=== PATIENT | female | born 1985 | race Caucasian/White ===

== ENCOUNTER 2022-06-18 08:00 | Outpatient (CLI) | payer OTHER, SELFPAY ==
--- NOTE | 2022-06-18 08:15 | CRLHL7_ITS ---
For Patients: As a result of the Cures Act, medical imaging exams and procedure reports are released immediately into your electronic medical record. You may view this report before your referring provider. If you have questions, please contact your health care provider. INDICATION: First trimester scan, establish dates. COMPARISON: None. TECHNIQUE: Real-time montgomery-scale imaging of the pelvis was performed. FINDINGS: Sonographic imaging demonstrates a single living intrauterine gestation. The embryo demonstrates a regular cardiac rate measuring 157 beats per minute. The embryo`s crown-rump length measurement of 1.5 cm corresponds to a gestational age of 8 weeks 0 days with a sonographic due date of 01/28/2023. There is an enlarged yolk sac measuring 7.9 millimeters. There are no gross abnormalities noted within the embryo at this early state of development. A small area fluid is located within the uterus adjacent to the endometrium measuring 4 x 6 x 3 millimeters. There is a 2 x 7 x 3 millimeter perigestational hemorrhage. The amount of fluid within the sac appears appropriate for gestational age. The cervix is closed. The myometrium appears normal. The ovaries are of normal size. Corpus luteal cyst left ovary. There are no suspicious fluid collections noted in the cul-de-sac. IMPRESSION: Single living intrauterine with sonographic gestational age 8 weeks 0 days and sonographic due date 01/28/23. Abnormally enlarged yolk sac measuring 7.9 millimeters. Increased risk of spontaneous may be present. Close follow-up suggested. Dictated by Navneet Posey MD @ 06/18/2022 10:11:17 AM (Electronically Signed)
== END 2022-06-18 08:01 | disposition home or self-care (01) ==
LOC: US 08:03
PROVIDERS: Visit Provider Registered Nurse
DX: Z34.81 Encounter for supervision of other normal pregnancy, first trimester (principal); Z3A.08 8 weeks gestation of pregnancy
CPT/HCPCS: 76817; 86592; 86703; 86762; 86803; 86850; 86900; 86901; 87086; 87340; 87491; 87591

== ENCOUNTER 2022-06-25 16:51 | Outpatient (CLI) | payer OTHER, SELFPAY ==
--- NOTE | 2022-06-25 17:00 | CRLHL7_ITS ---
For Patients: As a result of the Century Cures Act, medical imaging exams and procedure reports are released immediately into your electronic medical record. You may view this report before your referring provider. If you have questions, please contact your health care provider. INDICATION: Follow-up viability COMPARISON: 06/18/2022 TECHNIQUE: Real-time montgomery-scale imaging of the pelvis was performed. FINDINGS: pole has decreased in size now measuring 1.4 cm compared to 1.5 cm on the prior study. Enlarged and slightly irregular yolk sac is present which has increased in size now measuring 8.9 millimeters compared to 7.9 millimeters. No subchorionic hemorrhage. No heart tones. IMPRESSION: Intrauterine demise. Dictated by Navneet Posey MD @ 06/26/2022 9:47:57 AM (Electronically Signed)
== END 2022-06-25 16:52 | disposition home or self-care (01) ==
LOC: US 16:52
PROVIDERS: Visit Provider Registered Nurse
DX: O41.8X90 Other specified disorders of amniotic fluid and membranes, unspecified trimester, not applicable or unspecified (principal); O02.1 Missed abortion
CPT/HCPCS: 76817

== ENCOUNTER 2022-06-30 10:31 | Day surgery (SDC) | payer OTHER, SELFPAY ==
[2022-06-30 10:50] VITALS: BP 133/88; PULSE 74; RESP 16; TEMP 36.8; O2SAT 97
[2022-06-30 10:51] VITALS: BMI 30.4
[2022-06-30] MEDS: LACTATED RINGERS 1000 ML 1,000 ML 100 ML IV (11:00)
[2022-06-30] MEDS: SODIUM CHLORIDE 0.9 % (FLUSH) 10 ML SYRINGE IVF (11:06)
[2022-06-30] MEDS: DOXYCYCLINE HYCLATE 200 MG in 0.9 % SODIUM CHLORIDE Mini-bag 100 ML 100 MG IVPB (11:50)
[2022-06-30 12:12] VITALS: BP 114/65; PULSE 68; RESP 16; TEMP 36.2; O2SAT 95
[2022-06-30 12:15] VITALS: BP 100/62; PULSE 78; RESP 16; O2SAT 96
--- NOTE | 2022-06-30 12:17 | W.ANESCHARGE ---
Anesthesia Charges Start Date/Time Anesthesia Start Date: 06/30/22 Anesthesia Start Time: 11:37 Stop Date/Time Anesthesia Stop Date: 06/30/22 Anesthesia Stop Time: 12:15 Summary Emergency: No
--- NOTE | 2022-06-30 12:19 | W.ANESCHARGE ---
Anesthesia Charges Start Date/Time Anesthesia Start Date: 06/30/22 Anesthesia Start Time: 11:37 Stop Date/Time Anesthesia Stop Date: 06/30/22 Anesthesia Stop Time: 12:15 Summary Emergency: No
[2022-06-30 12:30] VITALS: BP 110/77; PULSE 58; RESP 16; O2SAT 100
--- NOTE | 2022-06-30 12:47 | PM.GYNPRPL ---
Procedure Pre-op/Post-op diagnoses: Pre-Op/Post-Op Diagnoses Operation Date: 06/30/22 11:55 <No data on this case meets the specified criteria> Procedure: Procedures Operation Date: 06/30/22 11:55 Actual Procedure Side Surgeon p Suction D&C Courtney Cast MD DILATION AND CURRETAGE PREOPERATIVE DIAGNOSIS: 1. Spontaneous missed POSTOPERATIVE DIAGNOSIS: Same PROCEDURE: 1. EUA 2. Suction dilation and curettage SURGEON: Courtney Cast MD DIRECTOR SUPPLY: Flavia StricklandDavison ANESTHESIA: MAC PRE-OPERATIVE ANTIBIOTIC: DOXYCYCLINE 200 MG IV FINDINGS: 1. A 7 week size mobile anteverted uterus, no adnexal masses on EUA 2. Normal external genitalia, normal appearing cervix that is dilated to 1 cm ESTIMATED BLOOD LOSS: 200cc URINE OUTPUT: 100cc COMPLICATIONS: none SPECIMEN: 1. Products of conception INDICATIONS: [age] yo G 2 P 1011, with diagnosis of missed at 8 weeks. DESCRIPTION OF PROCEDURE: The patient was taken to the operating room where MAC was administered. She was prepared and draped in normal sterile fashion in the dorsal lithotomy position in yellow fin/candy cane stirrups, taking care to avoid lower extremity hyperextension, hyperflexion or compression. A surgical time-out was performed with the entire operative staff per protocol. Perioperative antibiotics were given and pneumoboots were placed and activated. EUA revealed the above findings. Bladder was drained. A speculum was placed in the patient's vagina and a single-tooth tenaculum was placed on the anterior lip of the cervix. The cervix was gently dilated to a 8 [place] diameter to accommodate the 8 suction curettage. The suction curettage was then inserted under direct visualization. The uterus was then gently suction curetted and rotated to clear the uterus of products of conception. This was performed until a gritty texture. Single pass with banjo curette performed and it was noted and the uterus was cleared of all remaining products of conception. There was minimal bleeding noted after the curettage was removed. The tenaculum was removed from the anterior lip of the cervix and excellent hemostasis was noted. All instruments were removed. Specimen was sent to pathology. The patient tolerated the procedure well. Sponge, lap and needle counts were correct x 2. The patient was taken to the recovery room in stable condition. Courtney Cast MD Attending Physician Department of Obstetrics and Gynecology [facility] Estimated blood loss (mL): 200 Anesthesia type: MAC Complications: none Specimen: uterine contents Disposition: PACU
--- NOTE | 2022-06-30 12:57 | PM.GYNDS1 ---
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 Indication for surgery: []. Intraoperative findings were notable for []. She had an uncomplicated surgery. Postoperative course has been uneventful. Vitals have been stable. She has remained afebrile. Today, on postoperative day [], she reports the pain is well controlled. She has been able to ambulate Without difficulty. She is tolerating regular diet. She is passing flatus. Britton catheter has been removed, and she is voiding without difficulty. Time Spent with Patient Time attestation: Total time spent providing and/or coordinating discharge services: Time spent: Less than 30 minutes MOTOR SETTER - Exam Physical Exam: Vital signs: Temp Pulse Resp BP Pulse Ox O2 Del Method 97.1 F L 58 L 16 110/77 100 06/30/22 12:12 06/30/22 12:30 06/30/22 12:30 06/30/22 12:30 06/30/22 12:30 06/30/22 12:30 MOTOR SETTER - DS: Data Procedures Procedures: Procedures Operation Date: 06/30/22 11:55 Actual Procedure Side Surgeon p Suction D&C Courtney Cast MD Complications: none Discharge Plan Discharge Disposition: Home, Self-Care Discharging Surgeon: Courtney Cast Follow-Up Appointment: As needed. Prescriptions: New ibuprofen 600 mg tablet 600 mg PO Q6H PRN (Reason: pain) Qty: 14 0RF Rx Instructions: Alternate with Tylenol acetaminophen [Tylenol Extra Strength] 500 mg tablet 500 mg PO Q6H PRN (Reason: pain) Qty: 14 0RF Rx Instructions: Alternate with Ibuprofen. Do not exceed 3 g in 24 hours. Continued docosahexaenoic acid 200 mg capsule 250 cap PO DAILY prenat.vits,meri,vfw-mpia-awycx Tablet 1 tab PO QDAY fenofibric acid (choline) 135 mg capsule,delayed release(DR/EC) 135 mg PO QDAY Activity Level: Other Activity Detail: Pelvic rest for 2 weeks Discharge Diet: Regular Patient Instructions: Deep Sedation (DC), Dilation and Curettage (DC) Additional Instructions: 1. Pelvic rest for 2 weeks 2. Continue vitamins 3. When to call your doctor: Fever (>100.4F or 38.0C) or chills Foul smelling vaginal discharge Severe nausea and vomiting Bright red vaginal bleeding (soaking >1 pad/hour) Severe pain not relieved with pain medication Or if you have any other problems or questions 4. Call 911 or go to the emergency room if you have: any shortness of breath, difficulty breathing, or chest pain Forms: Work/Release Restrictions Follow-up: Provider,Not a Local [Primary Care Provider] - Courtney Cast MD [Staff Physician] - Discharge Orders: Discharge Order (Routine); Ordered 06/30/22 Ordered By: Courtney Cast
== END 2022-06-30 13:15 | disposition home or self-care (01) ==
PROVIDERS: Visit Provider Obstetrics & Gynecology
PROC: (CPT 59820; principal; 2022-06-30 11:45)
DX: O02.1 Missed abortion (principal); Z3A.08 8 weeks gestation of pregnancy
CPT/HCPCS: 59820; 01965; 88305; J1100; J1885; J2250; J2405; J2704; J3010; J3490; J7120

== ENCOUNTER 2023-04-24 11:58 | Outpatient (CLI) | payer OTHER, SELFPAY ==
--- NOTE | 2023-04-24 12:15 | CRLHL7_ITS ---
For Patients: As a result of the Cures Act, medical imaging exams and procedure reports are released immediately into your electronic medical record. You may view this report before your referring provider. If you have questions, please contact your health care provider. INDICATION: First trimester scan, establish dates. COMPARISON: None. TECHNIQUE: Real-time montgomery-scale imaging of the pelvis was performed. FINDINGS: Sonographic imaging demonstrates a single living intrauterine gestation. The embryo demonstrates a regular cardiac rate measuring 180 beats per minute. The embryo`s crown-rump length measurement of 1.9 cm corresponds to a gestational age of 8 weeks 3 days with a sonographic due date of 12/01/2023. There is a normal-appearing yolk sac. There are no gross abnormalities noted within the embryo at this early state of development. The gestational sac has a normal appearance. There is a 0.2 x 0.3 x 1.1 cm perigestational hemorrhage. The amount of fluid within the sac appears appropriate for gestational age. The cervix is closed. The myometrium appears normal. The ovaries are of normal size. There are no suspicious fluid collections noted in the cul-de-sac. IMPRESSION: Single living intrauterine with sonographic gestational age 8 weeks 3 days and sonographic due date 12/01/2023. Small inferior subchorionic hemorrhage measuring 2 x 3 x 11 millimeters. Dictated by Navneet Posey MD @ 04/24/2023 12:51:53 PM (Electronically Signed)
== END 2023-04-24 11:59 | disposition home or self-care (01) ==
LOC: US 11:59
PROVIDERS: Visit Provider Registered Nurse
DX: Z34.91 Encounter for supervision of normal pregnancy, unspecified, first trimester (principal); Z3A.08 8 weeks gestation of pregnancy
CPT/HCPCS: 76817; 86592; 86703; 86762; 86787; 86803; 86850; 86900; 86901; 87086; 87340; 87491; 87591

== ENCOUNTER 2023-06-19 15:05 | Outpatient (CLI) | payer OTHER, SELFPAY | END 2023-06-19 15:06 | disposition home or self-care (01) | LOC: NFLDREF 15:06 | PROVIDERS: Visit Provider Obstetrics & Gynecology | DX: R35.0 Frequency of micturition (principal) | CPT/HCPCS: 87086 ==

== ENCOUNTER 2023-09-02 01:11 | Outpatient (CLI) | payer OTHER, SELFPAY ==
[2023-09-02 01:29] VITALS: BP 119/62; PULSE 68; RESP 16; TEMP 37.1
--- NOTE | 2023-09-02 02:08 | PC.OBNST ---
NST Note NST Note Start: 09/02/23 01:23 Freq: ONCE Status: Discharge Protocol: Document 09/02/23 02:00 DOUG (Rec: 09/02/23 02:08 DOUG [id number]) NST Note 3 Para (# of births) 1 EDC 12/02/23 Gestational Age In Weeks & Days 27 Weeks & 0 Days High Risk Factors Advanced Maternal Age Patient Presented with Complaint(s) of Decreased movement Reactive Yes Appropriate for Gestational Age Yes LUIS Reese RN Date 09/02/23 Reactive Yes Appropriate for Gestational Age Yes LUIS Oconnell RNC Date 09/02/23 OB NST charge Yes Complete NST Note via Write Note Yes The provider's electronic signature indicates the NST is reactive/appropriate for gestational age. *Note to provider: If an addendum is required, open the patient's chart and click on the note under the Nurse/Allied Health tab.
== END 2023-09-02 01:50 | disposition home or self-care (01) ==
LOC: OB OUT 01:11 → OB 01:13
PROVIDERS: Visit Provider Obstetrics & Gynecology
DX: O36.8120 Decreased fetal movements, second trimester, not applicable or unspecified (principal); Z3A.27 27 weeks gestation of pregnancy
CPT/HCPCS: 59025; 99213

== ENCOUNTER 2023-09-11 09:10 | Outpatient (CLI) | payer OTHER, SELFPAY | END 2023-09-11 09:11 | disposition home or self-care (01) | LOC: NFLDREF 12:16 | PROVIDERS: Visit Provider Obstetrics & Gynecology | DX: Z34.90 Encounter for supervision of normal pregnancy, unspecified, unspecified trimester (principal) | CPT/HCPCS: 86592; 86850 ==

== ENCOUNTER 2023-11-02 11:10 | Outpatient (CLI) | payer OTHER, SELFPAY | END 2023-11-02 11:11 | disposition home or self-care (01) | LOC: NFLDREF 11-04 12:46 | PROVIDERS: Visit Provider Obstetrics & Gynecology | DX: Z34.93 Encounter for supervision of normal pregnancy, unspecified, third trimester (principal); Z3A.35 35 weeks gestation of pregnancy | CPT/HCPCS: 87081; 87653 ==

== ENCOUNTER 2023-11-26 04:03 | Inpatient (IN) | payer OTHER, SELFPAY ==
[2023-11-26] VITALS (75 sets, daily range): BP systolic 80–138; BP diastolic 44–85; PULSE 54–122; RESP 16; TEMP 36.5–37.9; O2SAT 97–99; BMI 39.6
[2023-11-26 04:49] LABS: Basophils Percent Auto 0.2 % (0.0-3.0); Eosinophils Percent Auto 0.7 % (0.0-7.0); Hematocrit 38.2 % (33.0-51.0); Hemoglobin* 12.8 gm/dL (12.0-16.0); Immature Granulocytes Pct Auto 0.6 %; Lymphocytes Percent Auto 12.1 % (20-44); Mean Corpuscular HGB Conc 34 gm/dL (32-36); Mean Corpuscular Hemoglobin 30 pg (26-34); Mean Corpuscular Volume 89 fL (80-100); Monocytes Percent Auto 6.3 % (0.0-11.0); Neutrophils Percent Auto 80.1 % (42.0-72.0); Platelet Count* 161 K/uL (140-440); RDW Coefficient of Variation % 13.8 % (11.5-15.5); Red Blood Count 4.28 m/uL (4.00-5.20); White Blood Count* 12.53 K/uL (4.50-11.00)
[2023-11-26 04:51] LABS: Slide Review Reflex No
[2023-11-26] MEDS: LACTATED RINGERS 1000 ML 1,000 ML 1200 ML IV ×2 (05:38→06:27)
[2023-11-26] MEDS: ROPIVACAINE 0.2% 100 ml 100 ML 12 MG EPIDURAL ×2 (06:29→14:27)
[2023-11-26] MEDS: LIDOCAINE 2% (PF) 5 ML VIAL EPIDURAL (06:30)
[2023-11-26] MEDS: PHENYLEPHRINE 100 MCG/ML SYRINGE IVP ×4 (06:49→08:46)
--- NOTE | 2023-11-26 06:55 | PM.ANBPRC ---
[facility] Medical History Missed ?O02.1 - Missed (ICD-10) Abnormal yolk sac ?O41.8X90 - Other specified disorders of amniotic fluid and membranes, unspecified trimester, not applicable or unspecified (ICD-10) Delivery normal ?O80 - Encounter for full-term uncomplicated delivery (ICD-10) Social History What is your current living situation?: I presently have a place to live Problems where you live: no known problems In the past 12 months, utilities in danger of being shut off: no In past 12 months, lack of transportation kept you from medical appts, meetings, work, or getting things needed for daily living: no In the past 12 mos, have been you worried that your food would run out before you had money to buy more?: never true In the past 12 mos, the food you bought just didn't last and you didn't have money to buy more?: never true Smoking Status: Never smoker How often do you have a drink containing alcohol: never AUDIT-C Alcohol total score: 0 Non-prescribed substance use: denies use Caffeine: Yes How often does anyone, including family, friends and others, physically hurt you: never How often does anyone, including family, friends and others, insult or talk down to you: never How often does anyone, including family, friends and others, threaten you with harm: never How often does anyone, including family, friends and others, scream or curse at you: never Little interest or pleasure in doing things: not at all Feeling down, depressed, or hopeless: several days Are you using contraception or practicing any form of control: No Meds Home Medications and Allergies Home Medications Medication Instructions Recorded Confirmed Type docosahexaenoic acid 200 mg capsule 250 cap PO DAILY 06/18/22 11/26/23 History fenofibric acid (choline) 135 mg 135 mg PO QDAY 06/18/22 11/26/23 History capsule,delayed release prenat.vits,meri,xlv-njfq-iktdp 1 tab PO QDAY 06/18/22 11/26/23 History aspirin 81 mg chewable tablet 81 mg PO QDAY 05/22/23 11/26/23 History Bacillus coagulans 800 million cell PO 11/02/23 11/24/23 History cell tablet Allergies Allergy/AdvReac Type Severity Reaction Status Date / Time Cephalosporins Allergy Unknown Verified 11/24/23 09:05 Sulfa (Sulfonamide Allergy Verified 11/24/23 09:05 Antibiotics) Results Labs Labs: Laboratory Results - last 24 hr 11/26/23 04:35 WBC 12.53 H RBC 4.28 Hgb 12.8 Hct 38.2 MCV 89 MCH 30 MCHC 34 RDW Coeff of Sonny 13.8 Plt Count 161 Neut % (Auto) 80.1 H Lymph % (Auto) 12.1 L [place] % (Auto) 6.3 Eos % (Auto) 0.7 Baso % (Auto) 0.2 Neut # (Auto) 10.00 H Lymph # (Auto) 1.50 [place] # (Auto) 0.80 Eos # (Auto) 0.10 Baso # (Auto) 0.00 Abs Immat Gran (auto) 0.10 Imm/Tot Granulo (auto) 0.6 Blood Type O Positive Antibody Screen NEGATIVE Vital Signs Vital Signs: Last Vital Signs Temp 98.7 F 11/26/23 02:45 Pulse 98 11/26/23 06:54 Resp 16 11/26/23 02:45 BP 108/61 11/26/23 06:54 Pulse Ox 97 11/26/23 06:47 Weight: 136.531 kg Height: 185.42 cm Anesthesia Procedures Epidural Insertion Patient Location: OB Start Time: 06:15 Stop Time: 07:15 Start Date: 11/26/23 Stop Date: 11/26/23 Reason for Block: procedure for pain Patient Position: sitting Performed By: Viky Reece Preanesthetic Checklist: IV checked, risks and benefits discussed, monitors and equipment checked, pre-op evaluation, timeout performed and anesthesia consent Prep: chlorhexidine gluconate Monitoring: blood pressure monitoring, continuous pulse oximetry and heart rate Approach: midline Vertebral Space: lumbar (1-5) Epidural Technique: EDWARD saline Needle Type: Tuohy needle Injection Technique: continuous catheter (continuous catheter) Needle gauge: 17 Needle Length (cm): 10 cm Needle Insertion Depth (cm): 6 Catheter Gauge: 19 Catheter Type: multi-orifice Catheter at skin depth (cm): 15 Test Dose Result: negative and lidocaine 1.5% with epinephrine 1 to 200,000 Intrathecal Performed By: Viky Reece
[2023-11-26] MEDS: ePHEDrine sulfate 5 MG/ML inj 10 MG IVP ×2 (07:08→08:02)
--- NOTE | 2023-11-26 07:52 | P.LDBA_ITS ---
Subjective History of Present Illness Date Seen: 11/26/23 Narrative: Patient is being admitted to Labor and Delivery in labor for delivery. She is a 38 year old at 39 1/7 weeks gestation. Her full history and physical was dictated by Dr. QUEZADA on 11/11/23. Please see this for details. Patient presented last night with painful uterine contractions was initially found at 3cm and progressed through the night and admitted this morning in labor. Specific Issues/Plans G 3 P 1 Spouse: Jez Cade. Daughter: Poprogelio. Baby: Girl. Amaris: Lidia H&P by PILAR on 11/11/23 1. AMA [id number]: negative, girl! Rec baby ASA d/t AMA and elevated BMI Level 2 u/s: [employer]. Normal on 07/07/2023 2. History of depression. Worsened in college. Remote history of celexa. Stable at first OB. 3. History of anorexia. No treatment or hospitalization. Stable. Declines blind weights. 4. History of migraine with aura. Headache w/ aphasia 08/2020. Had neuro consult. Migraine variant per patient. 5. Small EBER 0.2 x 0.3 x 1.1 cm 6. Size greater than dates (2cm) at 24 weeks - likely secondary to body habitus but consider growth US prn COVID: Completed in boosted x1 Flu vaccine: 07/17/23 TDAP: 09/25/2023 RSV: 10/09/2023 OB - Problem Based A/P Additional Plan (1) : Status: Acute Plan 1. Epidural in place for pain management, had hypotension and late decelerations at NST after placement, now recovered. Will continue close monitoring. 2. Expectant management at the moment, expect a vaginal delivery. 3. GBS negative no need for antibiotics. OB Result Labs Labs: Hgb: 12.8 mg/dL OB Exam Physical Exam Vital signs: Temp Pulse Resp BP Pulse Ox 98.7 F 97 16 96/50 L 97 11/26/23 02:45 11/26/23 07:46 11/26/23 02:45 11/26/23 07:46 11/26/23 06:47 Detailed Labor and Delivery Exam Patient Gravid: Yes Dilation (cm): 6 Effacement (%): 75 Cervix position: mid Consistency: soft Tachysystole: No Contraction intensity: Strong/Firm Fetus (Single) Station: -2 Amniotic Membrane Status: intact Heart Rate Baseline: 150 Monitor Accelerations: Present Monitor Decelerations: Variable (has had sporadic variables since admission, episodes of late after epidural placement most likely secondary to hypotension, now resolved)
[2023-11-26] MEDS: LACTATED RINGERS 1000 ML 1,000 ML 125 ML IV (10:08)
[2023-11-26] MEDS: OXYTOCIN 30 unit/500 ML in NS 30 UNIT/500 ML BAG IVPB (12:27)
--- NOTE | 2023-11-26 16:33 | W.PM.OBVAGDE ---
OB Procedure Vag Delivery Mother Details Mother Details: The patient is a 38 year-old, 3, Para 1, admitted on 11/26/23 at 39.1Days gestation. Patient admitted in labor, had epidural placement and progressed on her own quickly. She was found by nurses at around 10:30am at 9 cm. At this time it was suspected that patient had SROMed and when I had checked her in the morning I also believed I had membraned upon cervical check. I then arrived to check her at around noon and found a forebag, cervix was just a rim and with patient's previous delivery history, I recommended for us to rupture forebag and to start pushing. She pushed very effectively and I was able to reduce stretchy cervix after just a couple of pushes. Patient had a very dense epidural and was having regular contractions that were not strong, but she did move baby some due to her great pushing efforts. I was then able to identify that baby was OP, I recommended for us to start IV Oxytocin to increase the strength of the contractions, I also attempted manual rotation but minimal movement was noted. IV Oxytocin increased and patient pushed effectively but for about 3 hours. : 3 Para: 1 Weeks Gestation: 39.1 Admission Date: 11/26/23 Additional Details Amniotic Membrane Status: SROM (Rupture of a fore bag ) Amniotic Membrane Rupture Date: 11/26/23 Amniotic Membrane Rupture Time: 06:38 Amniotic Membrane Fluid Description: Clear Analgesia/Anesthesia Type: Epidural Waterbirth: No Pitcoin: Yes Intrapartal Events: Prolonged 2nd Stage >2.5 Hrs Delivery augmentation: rupture of membranes and pitocin Labor Onset: 05:00 Complete: 12:01 Pushin:47 Heart: heart tones during second stage were category 2. Variable decelerations with contractions, good accelerations and variability. tachycardia noted the last 15 minutes or so prior to delivery. Delivery Details Delivery Date: 11/26/23 Delivery Time: 15:03 Route of delivery: Infant Gender: Female Infant Viability: Alive; Heart Rate Present Position at Delivery: OP Delivery Details: Delivered over intact perineum via spontaneous vaginal delivery. Infant was placed on maternal abdomen.? Cord was clamped and cut after a 30-60 second delay. Nose and mouth were bulb suctioned.? Infant weight 10 pounds 0 ounces. 1 Minute Interval Total Score: 8 5 Minute Interval Total Score: 9 Additional Details Shoulder Dystocia: No Placenta Delivery Time: 15:08 Placental Delivery Description: Spontaneous Delivery repair: Vicryl Procedure Done: Global Blood Loss: 200 Laceration: Perineal - 2nd Degree Episiotomy Description: None Blood Loss Measurement Type: QBL Bakri Used: No Sponge/Need Count Correct: Yes Cord Vessel Description: 3 Vessels, Around Body and Delivered through Event Summary Status: Mother and infant were stable after delivery. Disposition: floor
[2023-11-26] MEDS: IBUPROFEN 600 MG TABLET PO ×2 (17:12→23:52)
[2023-11-26] MEDS: ACETAMINOPHEN 500 MG TABLET 1000 MG PO (19:00)
[2023-11-27] MEDS: ACETAMINOPHEN 500 MG TABLET 1000 MG PO ×2 (03:58→10:26)
[2023-11-27 04:00] VITALS: BP 123/73; PULSE 64; RESP 16; TEMP 36.9; O2SAT 97
[2023-11-27] MEDS: IBUPROFEN 600 MG TABLET PO ×2 (06:04→12:00)
[2023-11-27 07:17] LABS: Hemoglobin* 11.9 gm/dL (12.0-16.0)
[2023-11-27 08:15] VITALS: BP 116/73; PULSE 67; RESP 16; TEMP 36.6; O2SAT 98
--- NOTE | 2023-11-27 08:20 | PM.OBDSVD1 ---
DS: Providers Provider Date Seen: 11/27/23 Date of admission: 11/26/23 04:03 Primary care physician: Not a Local Provider Admitting Clinician: Krystin Switf MD Attending Physician on discharge: Mili Emanuel CNM Date of Discharge: 11/27/23 DS: Diagnosis Discharge Diagnosis (1) care and examination immediately after delivery: Status: Acute (2) Lactating mother: Status: Acute Exam Narrative: Exam Narrative: GENERAL APPEARANCE:? normal affect, alert, no distress MOOD:? appropriate CHEST:? clear to auscultation HEART:? regular rate and rhythm ABDOMEN:? soft, non-tender the uterine fundus is 1 cm below Umbilicus, Midline and is appropriate for the stage of recovery. PERINEUM:? mild edema of the perineum, there is a Perineal Laceration,? 2nd degree that is healing well. EXTREMITIES:? normal and trace edema Const: Vital Signs, click to edit/add: Vital Signs - 24 hr 11/26/23 08:25 11/26/23 08:25 11/26/23 08:41 Temperature 97.7 F Pulse Rate 88 80 Pulse Rate [Pulse Oximeter] Respiratory Rate Blood Pressure 107/56 L 99/54 L Blood Pressure [Le ft Arm] Pulse Oximetry Oxygen Delivery Ms thod 11/26/23 08:56 11/26/23 09:11 11/26/23 09:27 Temperature Pulse Rate 80 86 81 Pulse Rate [Pulse Oximeter] Respiratory Rate Blood Pressure 89/49 L 100/46 L 98/52 L Blood Pressure [Le ft Arm] Pulse Oximetry Oxygen Delivery Ms thod 11/26/23 09:42 11/26/23 09:56 11/26/23 10:11 Temperature Pulse Rate 79 82 88 Pulse Rate [Pulse Oximeter] Respiratory Rate Blood Pressure 109/51 L 97/53 L 115/60 Blood Pressure [Le ft Arm] Pulse Oximetry Oxygen Delivery Ms thod 11/26/23 10:27 11/26/23 10:38 11/26/23 10:41 Temperature 98.3 F Pulse Rate 83 86 Pulse Rate [Pulse Oximeter] Respiratory Rate Blood Pressure 121/65 109/58 L Blood Pressure [Le ft Arm] [facility] 10:57 11/26/23 11:12 11/26/23 11:26 Temperature Pulse Rate 88 81 90 Pulse Rate [Pulse Oximeter] Respiratory Rate Blood Pressure 113/57 L 114/60 92/55 L Blood Pressure [Le ft Arm] Pulse Oximetry [facility] 11/26/23 11:41 11/26/23 11:56 11/26/23 12:12 Temperature Pulse Rate 88 114 H 122 H Pulse Rate [Pulse Oximeter] Respiratory Rate Blood Pressure 133/65 138/66 136/85 Blood Pressure [Le ft Arm] Pulse Oximetry [facility] 11/26/23 12:26 11/26/23 12:42 11/26/23 13:11 Temperature Pulse Rate 83 86 87 Pulse Rate [Pulse Oximeter] Respiratory Rate Blood Pressure 117/56 L 133/58 L 125/59 L Blood Pressure [Le ft Arm] Pulse Oximetry [facility] 11/26/23 13:27 11/26/23 13:42 11/26/23 13:57 Temperature Pulse Rate 77 85 78 Pulse Rate [Pulse Oximeter] Respiratory Rate Blood Pressure 121/57 L 127/58 L 122/56 L Blood Pressure [Le ft Arm] Pulse Oximetry [facility] 11/26/23 14:12 11/26/23 14:27 11/26/23 14:30 Temperature 99.3 F Pulse Rate 100 86 Pulse Rate [Pulse Oximeter] Respiratory Rate Blood Pressure 123/58 L 124/60 Blood Pressure [Le ft Arm] Pulse Oximetry [facility] 11/26/23 14:41 11/26/23 14:56 11/26/23 15:11 Temperature 100.3 F H Pulse Rate 88 100 88 Pulse Rate [Pulse Oximeter] Respiratory Rate Blood Pressure 124/59 L 112/54 L 132/61 Blood Pressure [Le ft Arm] Pulse Oximetry [facility] 11/26/23 15:26 11/26/23 15:41 11/26/23 15:45 Temperature 99.4 F Pulse Rate 83 97 Pulse Rate [Pulse Oximeter] Respiratory Rate Blood Pressure 117/59 L 116/59 L Blood Pressure [Le ft Arm] Pulse Oximetry [facility] 11/26/23 15:56 11/26/23 16:11 11/26/23 16:26 Temperature Pulse Rate 96 98 91 Pulse Rate [Pulse Oximeter] Respiratory Rate Blood Pressure 115/55 L 118/57 L 110/58 L Blood Pressure [Le ft Arm] Pulse Oximetry Oxygen Delivery Me thod 11/26/23 16:41 11/26/23 16:56 11/26/23 17:11 Temperature Pulse Rate 88 85 102 H Pulse Rate [Pulse Oximeter] Respiratory Rate Blood Pressure 112/57 L 109/57 L 116/67 Blood Pressure [Le ft Arm] Pulse Oximetry Oxygen Delivery Me thod 11/26/23 19:51 11/26/23 23:30 11/27/23 04:00 Temperature 97.9 F 98.4 F 98.5 F Pulse Rate Pulse Rate [Pulse Oximeter] 75 78 64 Respiratory Rate 16 16 16 Blood Pressure Blood Pressure [Le ft Arm] 121/71 119/74 123/73 Pulse Oximetry 97 98 97 Oxygen Delivery Me thod Room Air Room Air Room Air Documenting provider has reviewed patient's vital signs: yes OB - DS: Summary Hospital Course Hospital Course: Alla is a 38 y.o. who was admitted to [facility] for labor. ?She had an uncomplicated NVD.?The patient feels well. ?The pain is well controlled with current medications. ?She has no new complaints. ?She is breast feeding and reports things are going well.? the patient has done well.? Vitals have been stable.? She has remained afebrile.? Has a good appetite, is tolerating a general diet. ?She is voiding without difficulty.? She is passing gas and has not had a bowel movement.? She is ambulating and denies any dizziness.? Has Small amount of rubra lochia. ?She is planning an IUD for prevention. Peripartum Data delivery method: Vaginal Laceration description: Perineal - 2nd Degree complications: none Wisdom Gender: Female Discharge Plan: Home Status at Discharge Functional status at discharge: independent ambulation Overall status at discharge: patient is progressing back to baseline Time Spent with Patient Time attestation: Total time spent providing and/or coordinating discharge services: Time spent: Less than 30 minutes Discharge Plan Discharge Disposition: Home, Self-Care Date of Admission: 11/26/23 04:03 Attending Provider on Discharge: Mili Emanuel Primary Care Provider: Provider,Not a Local Condition: Stable Anticipated Discharge Date/Time: 11/27/23 12:00 Discharge Medications: New acetaminophen 500 mg Tablet 1,000 mg PO Q6H PRNQty: 0 0RF docusate sodium 100 mg Capsule 100 mg PO DAILY Qty: 90 2RF ibuprofen 600 mg Tablet 600 mg PO Q6H PRNQty: 60 0RF Continued docosahexaenoic acid 200 mg capsule 250 cap PO DAILY prenat.vits,meri,nfm-pelj-bafox Tablet 1 tab PO QDAY fenofibric acid (choline) 135 mg capsule,delayed release(DR/EC) 135 mg PO QDAY Bacillus coagulans 800 million cell tablet PO Discontinued aspirin 81 mg tablet,chewable 81 mg PO QDAY acetaminophen [Tylenol Extra Strength] 500 mg tablet 500 mg PO Q6H PRN (Reason: pain) Qty: 14 0RF Rx Instructions: Alternate with Ibuprofen. Do not exceed 3 g in 24 hours. Discharge Orders: Discharge Order (Routine); Ordered 11/27/23 Ordered By: Mili Emanuel Patient Education: OB Over the Counter Medication Information, OB Vaginal/Breast Feeding Additional Instructions: Discharge instructions were reviewed with the patient including signs and symptoms of infection and home going medications Nothing vaginally for 6 weeks: no tampons or intercourse Off Work or School for 6 weeks 2-week visit: discuss feeding concerns, review control options and screen for anxiety/depression. 6-week visit for an annual exam. consultation services are available to all mothers and babies for the first year after delivery.? To make an appointment, please call [phone]. Activity Level: Activity as Tolerated Discharge Diet: Regular Follow Up Appointments: Provider,Not a Local [Primary Care Provider] - [facility] [Provider Group] Forms: [employer] Info Instructions
[2023-11-27] MEDS: DOCUSATE SODIUM 100 MG CAPSULE PO (10:26)
[2023-11-27 12:00] VITALS: BP 129/89; PULSE 73; RESP 16; TEMP 36.6; O2SAT 96
--- NOTE | 2023-11-27 14:12 | PM.ANPOST ---
Post Anesthesia Note Post Anesthesia Note Patient seen: Inpatient Respiratory Status: adequate Cardiovascular Status: adequate Mental Status: baseline Pain: adequate Temp: baseline Anesthetic awareness: N/A Complications: none Follow care: none
[2023-11-27 15:20] VITALS: BP 114/75; PULSE 70; RESP 18; TEMP 36.4; O2SAT 98
== END 2023-11-27 19:03 | disposition home or self-care (01) | DRG 807 ==
LOC: OB OUT 04:03 → OB 04:03
PROVIDERS: Obstetrics & Gynecology; Admitting Provider Obstetrics & Gynecology; Visit Provider Obstetrics & Gynecology
DX: O70.1 Second degree perineal laceration during delivery (principal); Z37.0 Single live birth; Z3A.39 39 weeks gestation of pregnancy; O99.344 Other mental disorders complicating childbirth; F32.A Depression, unspecified; R63.0 Anorexia; G43.109 Migraine with aura, not intractable, without status migrainosus
CPT/HCPCS: 01967; 36415; 85018; 85025; 86592; 86850; 86900; 86901; A9270; J2371; J2795; J7120

== ENCOUNTER 2023-12-18 09:06 | Outpatient (CLI) | payer OTHER, SELFPAY ==
--- NOTE | 2023-12-18 17:00 | P.LACCB_ITS ---
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 Zazueta Jaundice: No Reason for Consult Reason for Consult: baby stopped latching on 12/14 Past Experience Past Experience: Yes (nursed her older daughter for 2 years) Current Frequency of Day Feedings: about every 2 - 3 hours around the clock Both Breasts: Yes Suck: fairly strong Latch: fairly wide Length of Time: 10 - 15 minutes/side Pumping Pumping: Yes (a few times since 12/14) Quantity Pumped: about 2 oz total each time Supplementing EMB Supplement: Yes (since 12/14) Formula Supplement: No Baby Elimination Number of Wet Diapers a Day: with every feeding Number of BM a Day: at least once/day Breast/Nipple Condition Breast Information: WNL Maternal Nipple Condition - Left: Common Nipple Maternal Nipple Condition - Right: Common Nipple Sore Nipples: No Onsite Pre-Feed weight: 5.03 kg Post-Feed weight: 5.136 kg Milk Transferred (mL): 106 Assessments/Interventions Assessments/Interventions: Met with mom and this now 3 week old ex- term LGA baby for consult. Mom reports had been going really well until this past Thursday (12/14). She states baby just stopped nursing that morning. Per mom baby would latch and take a few suckles but then pull off the breast to just the nipple, milk was spilling out of her mouth, and she'd come off upset and frustrated. Mom started pumping with her Specta a few times and gave baby her frozen or fresh EBM for most of that day. On 12/16 she was nursing a little more consistently and did well on the left side with a nipple shield,but she was still having trouble with the right side even with a shield. Before the baby was nursing 10 - 15 minutes on both sides every 2 - 3 hours. Breasts WNL- symmetrical with rounded lower quadrants, intramammary distance < 1.5 inches. Nipples are everted and don't flatten or retract on compression, no damage noted. Baby has gained 42 grams/day since her NB visit on 11/30 and is now 500 grams (17 oz) above BW at 3 weeks. Mom denies any caput/cephalohematoma and states she has equal ROM when turning her head and moving her extremities. Her palate and upper frenulum are WNL. She has a fairly strong suck on a finger and her tongue easily extends over the gumline. There is quite a bit of canoeing when the tongue lateralizes. Her lower frenulum wasn't visualized, posterior? Baby does have a diaper rash, but it doesn't appear to be yeast. No s/s of yeast in her mouth. Mom denied that baby has shown any s/s of illness or pain in these past few days and states that nothing obvious has changed for her. Mom wanted to try latching baby to the right side without the shield and after only a few attempts, baby latched and started suckling. Mom reported it felt fairly deep, she was comfortable. Baby had nutritive suckles and swallowing was heard. She nursed for about 15 minutes before mom removed her b/c she was gett ing sleepy. She offered the left side and this time was a little more aggressive in bringing baby to her and again she got a deep latch and baby started suckling after a little prodding. She nursed about 10 minutes. transferring 106 ml (3.5 oz). Mom was measured and a flange size suggested, handout given. We discussed that on occasion a baby this young will refuse the breast and the cause can't really be identified. Reviewed that she did the right thing in continuing to offer the breast and started pumping to protect her supply. Encouraged her to continue nursing on demand and if a feeding in the future doesn't go well to pump for stimulation and offer that milk but it appears this issue is resolving. Encouraged her to consider Baby Talk or to call with any future concerns/questions. Meds Home Medications and Allergies Home Medications Medication Instructions Recorded Confirmed Type fenofibric acid (choline) 135 mg 135 mg PO QDAY 06/18/22 11/26/23 History capsule,delayed release prenat.vits,meri,cpe-ntbk-tqmxf 1 tab PO QDAY 06/18/22 11/26/23 History Bacillus coagulans 800 million cell PO 11/02/23 11/24/23 History cell tablet Allergies Allergy/AdvReac Type Severity Reaction Status Date / Time Cephalosporins Allergy Unknown Verified 12/15/23 12:34 Sulfa (Sulfonamide Allergy Verified 12/15/23 12:34 Antibiotics)
== END 2023-12-18 09:07 | disposition home or self-care (01) ==
LOC: OB LAC 09:09
PROVIDERS: Visit Provider Obstetrics & Gynecology
DX: Z39.1 Encounter for care and examination of lactating mother (principal)
CPT/HCPCS: G0463

== ENCOUNTER 2024-03-18 13:38 | Outpatient (CLI) | payer BC, SELFPAY ==
--- OUTSIDE RECORDS SUMMARY | 2024-03-18 13:40 | XMS_ITS | Referral Summary ---
Author Organization [facility] Address [address] [place] [address] Care Team Providers Care Fire Lieutenant Marine Name Role Phone Courtney Cast MD Primary Care Provider [phone] Social History Tobacco Use Types Packs/Day Years Used Date Smoking Tobacco: Never Assessed Adolescent Education Answer Date Record ed Getting School Help Needed Not on file 07/07 Sex and Gender Information Value Date Recorded Sex Assigned at Not on file Gender Identity Not on file Sexual Orientation Not on file Plan of Treatment Not on file Care Teams Fire Lieutenant Marine Relationship Specialty Start Date End Date Courtney Cast MD [facility] [address] [place] [address] PCP - General setup technician 07/07/23
--- OUTSIDE RECORDS SUMMARY | 2024-03-18 13:40 | XMS_ITS | Clinical Summary ---
Author Organization [facility] Address [address] [place] [address] Care Team Providers Care Unix Administrator Name Role Phone Courtney Cast MD Primary Care Provider [phone] Social History Tobacco Use Types Packs/Day Years Used Date Smoking Tobacco: Never Assessed Adolescent Education Answer Date Record ed Getting School Help Needed Not on file 07/07 Sex and Gender Information Value Date Recorded Sex Assigned at Not on file Gender Identity Not on file Sexual Orientation Not on file Plan of Treatment Health Maintenance Due Date Last Done Comments ADVANCE CARE PLANNING 1987 ANNUAL REVIEW OF HM ORDERS 1987 GLUCOSE 1987 YEARLY PREVENTIVE VISIT 1987 HIV SCREENING 2002 HEPATITIS C SCREENING 2005 HEPATITIS B IMMUNIZATION (1 of 3 - 19+ 3-dose series) 2006 PAP 2008 HPV IMMUNIZATION (3 - 3-dose series) 01/02/2011 10/10/2010, 07/13/2009 COVID-19 Vaccine ( season) 2023 08/19/2022, 10/25/2021, 02/26/2021, Additional history exists PHQ-2 (once per calendar year) 2023 INFLUENZA VACCINE (Season Ended) 2024 07/30/2022, 08/20/2021, 07/20/2020 DTAP/TDAP/TD IMMUNIZATION (2 - Td or Tdap) 08/30/2030 08/30/2020 MENINGITIS IMMUNIZATION Completed 05/14/2005 IPV IMMUNIZATION Aged Out No longer e ligible based on patient's age to complete this topic Pneumococcal Vaccine: Pediatrics (0 to 5 Years) and At-Risk Patients (6 to 64 Years) Aged Out No longer eligible based on patient's age to complete this topic RSV MONOCLONAL ANTIBODY Aged Out No l onger eligible based on patient's age to complete this topic Care Teams Unix Administrator Relationship Specialty Start Date End Date Courtney Cast MD [facility] [address] [place] [address] PCP - General plastic dolls mold filler 07/07/23
--- NOTE | 2024-03-18 13:45 | CRLHL7_ITS ---
For Patients: As a result of the Century Cures Act, medical imaging exams and procedure reports are released immediately into your electronic medical record. You may view this report before your referring provider. If you have questions, please contact your health care provider. INDICATION: Tinnitus. TECHNIQUE: 3D [id number] magnetic resonance angiography of the head with 3D MIP reconstructions provided. COMPARISON: None. FINDINGS: No proximal large vessel occlusion. The anterior cerebral arteries are patent. The middle cerebral arteries are patent. The posterior cerebral arteries are patent. The intradural vertebral arteries and basilar artery are patent. The intracranial internal carotid arteries are patent. No aneurysm or high flow vascular malformation. IMPRESSION: IMPRESSION 1. Major intracranial arteries are patent. No abnormalities involving the intracranial arterial circulation. Dictated by Miguel Garcia MD @ 03/18/2024 3:29:09 PM (Electronically Signed)
--- NOTE | 2024-03-18 14:30 | CRLHL7_ITS ---
For Patients: As a result of the Century Cures Act, medical imaging exams and procedure reports are released immediately into your electronic medical record. You may view this report before your referring provider. If you have questions, please contact your health care provider. INDICATION: Tinnitus. TECHNIQUE: Brain and temporal bone MRI without and with contrast. Twenty cc of gadolinium based contrast administered. COMPARISON : None. FINDINGS: There is asymmetric abnormal enhancement involving the basal turn of the cochlea, series 16, image 8. The membranous labyrinth`s are otherwise normal in appearance. No mass or pathologic enhancement within the internal auditory canals or the cerebellopontine angle cisterns. The cisternal and canalicular segments of the 7th/8th cranial nerve complexes are normal in appearance. The other imaged cranial nerve segments are normal in appearance. Brainstem and cerebellum are normal. No evidence of acute ischemia. No evidence of acute or chronic intracranial blood products. No mass or pathologic intracranial enhancement. No intracranial signal abnormality. No hydrocephalus or extra-axial collections. The pituitary gland, parasellar structures and optic chiasm are normal. All the major intracranial vascular structures demonstrate normal flow-related signal. The orbital contents are normal. No calvarial or skull base marrow replacing process. Moderate polypoid mucosal thickening right maxillary sinus. The paranasal sinuses are otherwise clear. No extracranial soft tissue findings. IMPRESSION: 1. Asymmetric abnormal enhancement involving the basal turn of the cochlea. Nonspecific although can be seen in the setting of labyrinthitis. Clinical correlation recommended. 2. No acute ischemia. No mass or abnormal enhancement elsewhere within the brain. 3. No other significant intracranial pathology. Dictated by Miguel Garcia MD @ 03/18/2024 3:38:39 PM (Electronically Signed)
== END 2024-03-18 13:39 | disposition home or self-care (01) ==
LOC: MRI 13:38
PROVIDERS: Visit Provider Otolaryngology
DX: H93.19 Tinnitus, unspecified ear (principal)
CPT/HCPCS: 70544; 70553; A9575

== ENCOUNTER 2024-03-25 14:54 | Outpatient (CLI) | payer BC, SELFPAY ==
--- OUTSIDE RECORDS SUMMARY | 2024-03-25 14:57 | XMS_ITS | Clinical Summary ---
Author Organization [facility] Address [address] [place] [address] Care Team Providers Care Aircraft Engine Installer Name Role Phone Courtney Cast MD Primary Care Provider [phone] Social History Tobacco Use Types Packs/Day Years [...] age to complete this topic Care Teams Aircraft Engine Installer Relationship Specialty Start Date End Date Courtney Cast MD [facility] [address] [place] [address] PCP - General steel buffer 07/07/23
--- OUTSIDE RECORDS SUMMARY | 2024-03-25 14:57 | XMS_ITS | Referral Summary ---
Author Organization [facility] Address [address] [place] [address] Care Team Providers Care Electronic Parts Designer Name Role Phone Courtney Cast MD Primary Care Provider [phone] Social History Tobacco Use Types Packs/Day Years Used Date Smoking Tobacco: Never Assessed Adolescent Education Answer Date Record ed Getting School Help Needed Not on file 07/07 Sex and Gender Information Value Date Recorded Sex Assigned at Not on file Gender Identity Not on file Sexual Orientation Not on file Plan of Treatment Not on file Care Teams Electronic Parts Designer Relationship Specialty Start Date End Date Courtney Cast MD [facility] [address] [place] [address] PCP - General solicitor patent 07/07/23
--- NOTE | 2024-03-25 15:00 | CRLHL7_ITS ---
For Patients: As a result of the Cures Act, medical imaging exams and procedure reports are released immediately into your electronic medical record. You may view this report before your referring provider. If you have questions, please contact your health care provider. INDICATION: Tinnitus COMPARISON: None available TECHNIQUE: The carotid circulations and the vertebral arteries in the neck were examined using real-time montgomery scale imaging (B mode 2D), color flow Doppler and spectral analysis. Degrees of stenosis were determined using SRU 2002 Consensus Panel Criteria. FINDINGS: On the right, the peak systolic internal carotid artery velocity is 99 centimeters per second with a ICA/CCA ratio of normal at 0.81. There is no plaque in the bifurcation. The findings indicate a normal right carotid bifurcation. On the left, the peak systolic internal carotid artery velocity is 97 centimeters per second with a ICA/CCA ratio of normal at 0.75. There is no plaque in the bifurcation. The findings indicate a normal left carotid bifurcation. There is antegrade flow in both vertebral arteries. There is a rounded soft tissue nodule posterior to the right lobe of the thyroid measuring 0.9 x 1.2 x 1.4 centimeters, appears to be separate from the thyroid. This is probably a parathyroid gland and requires no further follow-up. IMPRESSION: 1. Normal ultrasound examination of the carotid bifurcations. 2. Probable parathyroid gland seen posterior to the right lobe of the thyroid. Dictated by Hosea Sullivan MD @ 03/28/2024 12:18:29 AM (Electronically Signed)
== END 2024-03-25 14:55 | disposition home or self-care (01) ==
LOC: US 14:55
PROVIDERS: Visit Provider Otolaryngology
DX: H93.19 Tinnitus, unspecified ear (principal)
CPT/HCPCS: 93880

== ENCOUNTER 2024-04-13 09:15 | Outpatient (CLI) | payer BC, SELFPAY ==
--- OUTSIDE RECORDS SUMMARY | 2024-04-13 09:20 | XMS_ITS | Referral Summary ---
Author Organization [facility] Address [address] [place] [address] Care Team Providers Care Mine Shifter Name Role Phone Courtney Cast MD Primary Care Provider [phone] Social History Tobacco Use Types Packs/Day Years Used Date Smoking Tobacco: Never Assessed Adolescent Education Answer Date Record ed Getting School Help Needed Not on file 07/07 Sex and Gender Information Value Date Recorded Sex Assigned at Not on file Gender Identity Not on file Sexual Orientation Not on file Plan of Treatment Not on file Care Teams Mine Shifter Relationship Specialty Start Date End Date Courtney Cast MD [facility] [address] [place] [address] PCP - General barn manager 07/07/23
--- OUTSIDE RECORDS SUMMARY | 2024-04-13 09:20 | XMS_ITS | Clinical Summary ---
Author Organization [facility] Address [address] [place] [address] Care Team Providers Care Booking Agent Name Role Phone Courtney Cast MD Primary Care Provider [phone] Social History Tobacco Use Types Packs/Day Years [...] (once per calendar year) 2023 INFLUENZA VACCINE (#1) 2024 2, 08/20/2021, 07/20/2020 DTAP/TDAP/TD IMMUNIZATION (2 - Td [...] age to complete this topic Care Teams Booking Agent Relationship Specialty Start Date End Date Courtney Cast MD [facility] [address] [place] [address] PCP - General mis director 07/07/23
== END 2024-04-13 09:16 | disposition home or self-care (01) ==
PROVIDERS: Visit Provider Family Medicine
DX: Z00.00 Encounter for general adult medical examination without abnormal findings (principal); R53.83 Other fatigue; F32.A Depression, unspecified; F41.9 Anxiety disorder, unspecified; E66.9 Obesity, unspecified; Z13.6 Encounter for screening for cardiovascular disorders; Z78.9 Other specified health status
CPT/HCPCS: 80053; 80061; 82607; 82728; 84443

== ENCOUNTER 2025-05-11 09:37 | Outpatient (CLI) | payer MEDICAID, SELFPAY ==
[2025-05-11 11:25] LABS: Bacterial Vaginosis* Negative (Negative); Candida glab/krus NOT DETECTED (No Detected)
== END 2025-05-11 09:38 | disposition home or self-care (01) ==
LOC: NFLDREF 09:38
PROVIDERS: PCP Family Medicine; Visit Provider Obstetrics & Gynecology
DX: R10.2 Pelvic and perineal pain (principal)
CPT/HCPCS: 81513; 87481; 87661

== ENCOUNTER 2025-05-24 07:08 | Outpatient (CLI) | payer MEDICAID, SELFPAY ==
--- NOTE | 2025-05-24 07:15 | CRLHL7_ITS ---
For Patients: As a result of the Century Cures Act, medical imaging exams and procedure reports are released immediately into your electronic medical record. You may view this report before your referring provider. If you have questions, please contact your health care provider. CLINICAL HISTORY: Pelvic pain COMPARISON: None. TECHNIQUE: 2D montgomery-scale ultrasound. In addition, color Doppler and spectral Doppler analysis was performed of the pelvis using a transabdominal and transvaginal approach. Transvaginal imaging performed to better visualize the endometrial stripe and ovaries. FINDINGS: The uterus measures 9.8 x 4.4 x 5.7 cm. The endometrial lining appears normal and measures 4.6 mm in thickness. Normal position of an IUD within the endometrial canal. The right ovary measures 3.3 x 2.1 x 2.1 cm in size and the left ovary measures 3.5 x 2.1 x 2.1 cm. The ovaries demonstrate normal arterial and venous blood flow on color Doppler and spectral Doppler analysis. There are no suspicious fluid collections within the cul-de-sac. Simple right adnexal cyst measures 1.5 x 0.9 x 1.0 cm. IMPRESSION: Incidental simple right adnexal cyst measures 1.5 cm. Normal position of an IUD. Dictated by Navneet Posey MD @ 05/24/2025 8:42:19 AM (Electronically Signed)
== END 2025-05-24 07:09 | disposition home or self-care (01) ==
LOC: US 07:09
PROVIDERS: PCP Family Medicine; Visit Provider Obstetrics & Gynecology
DX: R10.2 Pelvic and perineal pain (principal); N83.291 Other ovarian cyst, right side
CPT/HCPCS: 76830; 76856; 93976